=== PATIENT | female | born 1955 | race African-American/Black ===

== ENCOUNTER 2019-04-01 19:07 | Emergency (ER) | payer OTHER ==
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
== END 2019-04-01 19:56 | disposition home or self-care (01) ==
LOC: SCSER 19:07
DX: S20.219A Contusion of unspecified front wall of thorax, initial encounter (principal); E03.9 Hypothyroidism, unspecified; E78.5 Hyperlipidemia, unspecified; E78.00 Pure hypercholesterolemia, unspecified; J45.909 Unspecified asthma, uncomplicated; Z79.899 Other long term (current) drug therapy; V43.62XA Car passenger injured in collision with other type car in traffic accident, initial encounter
CPT/HCPCS: 71046